=== PATIENT | male | born 1990 | race African-American/Black ===

== ENCOUNTER 2021-01-04 04:33 | Inpatient (IN) | payer OTHER ==
[~2021-01-04] VITALS: Ht 188 cm; Wt 114.8 kg
[2021-01-04 04:34] VITALS: BP 112/47
[2021-01-04] MEDS ORDERED: BACTRIM DS TAB1 EAC1 PO ×2 (05:51→07:53)
[2021-01-04 05:56] LABS: ABSOLUTE NEUTROPHILS 4.2 thou/uL (1.4-8.2); BASOPHILS 0.8 % (0.0-2.0); EOSINOPHILS 6.2 % (0.0-3.0); HEMATOCRIT 37.8 % (42.0-52.0); HEMOGLOBIN 11.7 gm/dL (14.0-18.0); LYMPHOCYTES 34.5 % (24.0-44.0); MCH 23.7 pg (26.0-34.0); MCV 76.4 fL (80.0-100.0); MONOCYTES 5.6 % (1.0-8.0); PLATELET COUNT 283 thou/uL (150-400); POLYS 52.9 % (36.0-66.0); RBC 4.95 mil/uL (4.50-6.00); RDW 14.9 % (10.5-14.5); WBC 7.9 thou/uL (4.0-11.0)
[2021-01-04 06:04] LABS: CALCIUM 8.8 mg/dL (8.5-10.1); POTASSIUM 3.7 mmol/L (3.5-5.1)
[2021-01-04 06:11] LABS: ALBUMIN 3.9 g/dL (3.4-5.0); TOTAL BILIRUBIN 0.2 mg/dL (0.2-1.0); TOTAL PROTEIN 8.2 g/dL (6.4-8.2)
[2021-01-04 06:32] LABS: URINE BILIRUBIN NEGATIVE (Negative); URINE BLOOD 1+ (Negative); URINE CLARITY CLOUDY; URINE COLOR YELLOW; URINE GLUCOSE-RANDOM* NEGATIVE (Negative); URINE KETONES NEGATIVE (Negative); URINE PROTEIN (DIPSTICK) 1+ (Negative); URINE SPECIFIC GRAVITY >= 1.030 (1.005-1.035); URINE UROBILINOGEN 0.2 E.U./dl (0.2-1.0)
[2021-01-04 06:37] LABS: URINE LEUKOCYTES-REFLEX 1+ (Negative); URINE NITRITE-REFLEX POSITIVE (Negative)
[2021-01-04 07:13] LABS: CASTS None Seen /LPF (None Seen); SQUAMOUS 0-3 Few /LPF (0-3); URINE RBC 3-10 Few /HPF (NONE SEEN); URINE WBC-REFLEX 6-15 Few /HPF (0-5)
[2021-01-04 07:18] LABS: AMORPHOUS URATES Moderate /LPF (None Seen)
[2021-01-04] MEDS ORDERED: HYOSCYAMINE0.125 MG PO (07:53)
[2021-01-04] MEDS ORDERED: SERTRALINE HCL100 MG PO (07:53)
[2021-01-04 11:13] VITALS: BP 109/61
[2021-01-04 11:15] LABS: FOLIC ACID 5.1 ng/mL (8.6-58.9)
[2021-01-04 11:37] VITALS: BP 114/51
[2021-01-04 12:05] VITALS: BP 118/88
[2021-01-04 15:26] VITALS: BP 106/63
--- NOTE | 2021-01-04 18:03 | NUR ---
PATIENT ADMIT TO UNIT AT 1200. ALERT, LETHARGIC. MULTIBLE WOUND PICTURE TAKING. NO SEZIURE NOTED. PATIENT HAVING EEG NOW. VSS. WILL KEEP MONITOR.
[2021-01-04 20:17] VITALS: BP 100/52
[2021-01-05 04:07] VITALS: BP 103/60
[2021-01-05 05:26] LABS: ABSOLUTE NEUTROPHILS 3.7 thou/uL (1.4-8.2); BASOPHILS 0.9 % (0.0-2.0); EOSINOPHILS 4.4 % (0.0-3.0); HEMATOCRIT 34.4 % (42.0-52.0); LYMPHOCYTES 35.6 % (24.0-44.0); MCH 24.3 pg (26.0-34.0); MONOCYTES 7.5 % (1.0-8.0); POLYS 51.6 % (36.0-66.0); RBC 4.52 mil/uL (4.50-6.00); RDW 14.7 % (10.5-14.5); WBC 7.2 thou/uL (4.0-11.0)
[2021-01-05 05:33] LABS: CALCIUM 8.4 mg/dL (8.5-10.1); CREATININE 0.6 mg/dL (0.7-1.3); POTASSIUM 3.5 mmol/L (3.5-5.1)
[2021-01-05 05:34] LABS: PLATELET COUNT 207 thou/uL (150-400)
[2021-01-05 07:34] VITALS: BP 111/65
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
[2021-01-05 11:24] VITALS: BP 112/63
--- NOTE | 2021-01-05 12:37 | NUR ---
WOUND CONSULT; ROUNDING WITH LUCIAN SANTOYO AND SATHISH HERZOG MSN. THE PATIENT HAS CHRONIC WOUNDS TO THE CALF BILATERALLY. NO ACUTE S/S OF INFECTION WAS VISUALIZE BUT I CANNOT RULE THIS OUT. RECOMMENDATION; LUCIAN SANTOYO ORDERED AG FOAM DRESSING, CHANGE M/W/F PRN. DISCUSSED WITH STAFF
[2021-01-05 15:54] VITALS: BP 98/65
--- NOTE | 2021-01-05 17:45 | NUR ---
FATHER AT BEDSIDE, CONCERNED WITH THE TYPE OF WOUND CARE THAT IS BEING DONE TO [facility]ONS [facility]. FATHER FEELS THAT HE NEEDS TO HAVE COLIGINATE AG ADDED TO WOUND CARE. YARELIS CISSE CALLED AND NOTIFIED OF ISSUE. HE SPOKE WITH FATHER ON THE PHONE. RECIEVED ORDERS TO ADD COLIGINATE AG TO BASE OF WOUND. TOLD FATHER TO BRING HOME SUPPLY IN TOMORROW WE MIGHT NOT HAVE THIS PRODUCT IN HOUSE, FATHER ACKNOWLEGED.
[2021-01-05 20:37] VITALS: BP 109/65
[2021-01-06 04:45] VITALS: BP 104/67
[2021-01-06 05:23] LABS: HEMATOCRIT 36.9 % (42.0-52.0); HEMOGLOBIN 11.8 gm/dL (14.0-18.0); MCH 24.2 pg (26.0-34.0); MCV 75.6 fL (80.0-100.0); RBC 4.88 mil/uL (4.50-6.00); RDW 14.7 % (10.5-14.5); WBC 6.1 thou/uL (4.0-11.0)
[2021-01-06 05:35] LABS: CREATININE 0.6 mg/dL (0.7-1.3); MAGNESIUM 2.2 mg/dL (1.8-2.4); POTASSIUM 3.5 mmol/L (3.5-5.1)
[2021-01-06 07:45] VITALS: BP 146/124
[2021-01-06 15:26] VITALS: BP 108/66
[2021-01-06 19:57] VITALS: BP 134/67
--- NOTE | 2021-01-07 01:40 | NUR ---
ASSESSMENT: PT REMAIN ALERT AND ORIENT TIMES THREE. PT WAS AWAKE AND WATCHING TELEVISION. DENIES PAIN, SOB AND N/V. VSS, AFEBRILE. SR PER MONITOR. WOUND CARE WAS PROVIDED BY PT'S OWN FATHER EARLIER DURING THE DAY SHIFT. DRESSING C/D/I. SUPRA-PUBIC CATH INTACT, PATENT WITH DK YELLOW URINE. NO BM THUS FAR THIS SHIFT. PT REFUSING TURNS MOST TIMES. EDUCATION R/T WOUNDS AND DECUBS GIVEN. SLOW PROGRESS TOWARDS DC GOALS. WILL CONTINUE TO MONITOR.
[2021-01-07 05:10] VITALS: BP 105/63
[2021-01-07 07:47] VITALS: BP 113/67
[2021-01-07] MEDS ORDERED: FOLIC ACID1 MG PO (11:29)
[2021-01-07] MEDS ORDERED: CEFUROXIME500 MG PO (11:29)
[2021-01-07] MEDS ORDERED: KEPPRA 500 MG500 M1 PO (11:29)
[2021-01-07] MEDS ORDERED: MIRALAX17 GM PO (11:29)
[2021-01-07 12:02] VITALS: BP 113/67
--- NOTE | 2021-01-07 15:38 | NUR ---
ASSUMED PATIENT CARE AT 0700. A/O X3. NO SEIZURE NOTED. VSS. DC TO HOME AT 1300.
--- NOTE | 2021-01-09 08:28 | HC ---
[facility] [place] [address] CONSULTATION Name: MAI CARMICHAEL Room #: [address] [place] [address] IN M.R.#: [id number] Admission: 01/04/21 Attend Phys: Edmond Garcia MD Discharge: 01/07/21 Date of : 89 Report #: [id number] THIS REPORT FOR: cc: Sammy Stafford MD, Washington S. MD Stephens, Thad A. MD ~ DOC #: [id number] Adam Jose MD DATE OF SERVICE: 01/05/2021 REQUESTING PHYSICIAN: Sammy Stafford MD CHIEF COMPLAINT: Bilateral calf ulcerations and coccygeal ulceration. HISTORY OF PRESENT ILLNESS: This is a 30-year-old black male who was brought in to the Emergency Department for seizures. The patient does have a history of seizures as well as a traumatic brain injury. The patient states that he has the ulcerations on the bilateral calves and coccygeal region, all of which supposed to be improving. The patient does have home health nurses that help assist in his care. The patient denies any other new ulcerations. PAST MEDICAL HISTORY: Significant for seizure disorder, traumatic brain injury, obesity. PAST SURGICAL HISTORY: Suprapubic catheter placement. CURRENT MEDICATIONS: Multiple. I reviewed the patient's medication list. DRUG ALLERGIES: None. SOCIAL HISTORY: The patient does not smoke or drink alcohol. FAMILY HISTORY: Not pertinent to current medical condition. REVIEW OF SYSTEMS: CONSTITUTIONAL: The patient denies fevers or chills. NEUROLOGIC: The patient had seizure activity prior to coming to the Emergency Department. Denies any headache at this time. EYES: No complaints. ENT: No complaints. CARDIOVASCULAR: The patient denies chest pain, palpitations or peripheral edema. RESPIRATORY: The patient denies shortness of breath, cough or wheezes. GASTROINTESTINAL: The patient denies nausea, vomiting or abdominal pain. GENITOURINARY: The patient has a suprapubic catheter. MUSCULOSKELETAL: No complaints. [facility] [address] [place] [address] CONSULTATION Name: MAI CARMICHAEL Room #: [address] [place] [address] [place] [facility].#: [id number] Admission: 01/04/21 Attend Phys: Edmond Garcia MD Discharge: 01/07/21 Date of : 89 Report #: [id number] SKIN: The patient has a chronic ulcer in the coccygeal region as well as chronic ulcers on the lateral calves and a chronic ulcer on the left heel. PHYSICAL EXAMINATION: VITAL SIGNS: Temperature 37.2, pulse 72, respirations 16, BP 112/63. GENERAL: He is alert and oriented to person and place, but not time. Chronically ill-appearing black male who is in no obvious distress. HEENT: Normocephalic, atraumatic. Mucous membranes are somewhat dry. Pupils are round. Sclerae white. NECK: Without JVD. LUNGS: Clear. HEART: Regular. ABDOMEN: Obese, soft, nontender. Evaluation of sacrococcygeal region reveals a resolving stage decubitus ulcer, which is fairly clean and granulating. Periwound is mildly macerated. There is no significant tunneling or undermining. Moderate amount of serosanguineous drainage noted without odor. EXTREMITIES: The patient has decreased movement of all extremities. The patient has on the bilateral calf regions are stage III decubitus ulcers, which are fairly clean and granulated with minimal serosanguineous drainage noted without odor. There is no tunneling or undermining. On the left heel, there is an unstageable decubitus ulcer, which is 100%, slough. Periwound is mildly macerated. There is no significant tunneling or undermining. Distal pulses are 1+. Right heel is intact. NEUROLOGIC: Cranial nerves II-XII are grossly intact. LABORATORY DATA: White count 7.2, hemoglobin 11.0, albumin 3.9. IMPRESSION: 1. Chronic resolving stage IV decubitus ulcer to the coccygeal region, overall improving. 2. Chronic stage III decubitus ulcers, bilateral calf regions, overall stable. 3. Unstageable decubitus ulcer, left heel. 4. History of seizure disorder. 5. Generalized debility. PLAN: At this time, we will start Aquacel AG packed into the coccygeal ulcer covered with a foam dressing changes daily. We will place the patient on low air loss surface, having turned every 2 hours. We will put the patient in heel protection boots to be worn at all times. We will use Aquacel and foam border to the bilateral calf ulcers, change daily. We will make sure we maximize the patient's oral protein supplementation for continued healing. We will utilize physical and occupational therapy for strengthening. We will continue all other current medications. Appreciate ability to consult.. Adam Jose MD [address] [address] CONSULTATION Name: MAI CARMICHAEL Room #: [facility] IN M.R.#: [id number] Admission: 01/04/21 Attend Phys: Edmond Garcia MD Discharge: 01/07/21 Date of : 89 Report #: [id number] TAS/DAVID <ELECTRONICALLY SIGNED> By: Adam Jose MD 01/09/21 0828 [id number] Adam Jose MD /nt
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
--- NOTE | 2021-01-11 14:17 | EEG ---
[facility] [place] [address] ELECTROENCEPHALOGRAM Name: MAI CARMICHAEL Room #: [address] [place] [address] [place] M.R.#: [id number] Admission: 01/04/21 Attend Phys: Edmond Garcia MD Discharge: 01/07/21 Date of : 89 Report #: [id number] THIS REPORT FOR: //name// DOC #: [id number] Speedy Mederos MD DATE OF SERVICE: 01/04/2021 This patient is being evaluated for seizure. EEG was done by placing the electrode by standard 10-20 system of electrode placement. Both referential and sequential montages were used for recording. Background activity in this patient's EEG is about 10 Hz and 30 microvolt. The patient went to sleep that is associated with bilateral slowing and vertex sharp waves. Photic stimulation is unremarkable. No active epileptiform activity was noticed. IMPRESSION: This patient's EEG does not demonstrate any active epileptiform activity. Speedy Mederos MD PK/DAVID <ELECTRONICALLY SIGNED> By: Speedy Mederos MD 01/11/21 1417 [id number] Speedy Mederos MD /nt
== END 2021-01-07 13:22 | disposition home or self-care (01) | DRG 871 ==
LOC: ER 04:33 → EROBS 11:16 → 3W 11:16
PROVIDERS: Emergency Medicine; Internal Medicine; Nurse Practitioner; ADMIT Hospitalist; ATTEND Hospitalist
DX: A41.9 Sepsis, unspecified organism (principal); L89.154 Pressure ulcer of sacral region, stage 4; L89.893 Pressure ulcer of other site, stage 3; G92 Toxic encephalopathy; N39.0 Urinary tract infection, site not specified; G82.20 Paraplegia, unspecified; N31.9 Neuromuscular dysfunction of bladder, unspecified; L89.620 Pressure ulcer of left heel, unstageable; G40.401 Other generalized epilepsy and epileptic syndromes, not intractable, with status epilepticus; Z79.899 Other long term (current) drug therapy; Z87.820 Personal history of traumatic brain injury
CPT/HCPCS: 10879

== ENCOUNTER 2021-06-13 09:03 | Emergency (ER) | payer OTHER ==
[~2021-06-13] VITALS: Ht 185.4 cm; Wt 110.8 kg
--- NOTE | ~2021-06-13 | EMS ---
[place] [address] EMS Patient Care Report Name: MAI CARMICHAEL Room #: PRE MVic#: [id number] Admission: Attend Phys: Discharge: Date of : 89 Report #: [id number] THIS REPORT FOR: //name// Report Transmitted: 06/13/2021 08:24 EMS Care Summary [place], [place]/[facility] Incident [id number] @ 06/13/2021 08:26 [address] [place] [address] Patient MAI CARMICHAEL Male, 31 Years 1990 Patient Address [address] [place] [address] Patient History Seizures,Paraplegia,Past Traumatic Brain Injury, Patient Allergies No known allergies, Patient Medications None Reported, Chief Complaint SEIZURE ACTIVITY Disposition Transported No Lights/Gore Dispatch Reason Convulsions/Seizure Transported To [facility] Narrative UPON ARRIVAL PT IN BED NOT ALERT. PT'S FATHER STATES HE'S BEEN HAVING SEIZURE ACTIVITY THE PAST 30 MINUTES. THIS WOULD BE PT'S 3RD SEIZURE IN HIS LIFE. PT PARAPLEGIC AND HAS HAD A PAST TBI. PT CARRIED TO COT VIA [place]. PT TRANSPORTED TO [facility]. PT HAS NO SEIZURE ACTIVITY DURING CARE BUT REMAINS [address] [address] EMS Patient Care Report Name: MAI CARMICHAEL Room #: PRE M.R.#: [id number] Admission: Attend Phys: Discharge: Date of : 89 Report #: [id number] POSTICTAL THROUGHOUT. Initial Vitals @08:50P: 102,CO: 6,SpO2: 94, @08:51P: 109,R: 16,BP: 98/61,GCS: 10,SpO2: 97,Revised Trauma: 11, @08:40P: 103,R: 16,BP: 95/57,Pain: 0/10,GCS: 10,Glucose: 131,SpO2: 93,Revised Trauma: 11, Assessments @08:32MENTAL:Other,Confused,SKIN:HEENT:Head/Face: No Abnormalities,Neck/Airway: No Abnormalities,LUNG SOUNDS:General: No Abnormalities,ABDOMEN:General: No Abnormalities,PELVIS//GI:EXTREMITIES:PULSE:Radial: 2+ Normal,NEURO:Seizures, Impression Seizures Procedures @08:32 ALS Assessment Response: UnchangedSucceeded @08:40 IV Therapy - Saline Lock 10cc (20 ga) Site: Hand-Left Response: UnchangedSucceeded @08:45 Oxygen FlowRate: 2 Device: Nasal Cannula (NC) Response: ImprovedSucceeded @08:42 3-Lead ECG Response: UnchangedSucceeded Timeline 08:24,Call Received 08:24,Dispatch Notified 08:26,Dispatched 08:26,En Route 08:30,On Scene 08:31,At Patient 08:32,ALS Assessment,Response: UnchangedSucceeded, 08:40,BP: 95/57 M,PULSE: 103,RR: 16 R,SPO2: 93 Ox,ETCO2: ,B,PAIN: 0,GCS: 10, 08:40,IV Therapy - Saline Lock 10cc 20 ga Site: Hand-Left,Response: UnchangedSucceeded, 08:42,3-Lead ECG,Response: UnchangedSucceeded, 08:43,Depart Scene 08:45,Oxygen FlowRate: 2 Device: Nasal Cannula (NC) Response: ImprovedSucceeded, 08:50,BP: / M,PULSE: 102,RR: R,SPO2: 94 Ox,ETCO2: ,BG: ,PAIN: ,GCS: , 08:51,BP: 98/61 M,PULSE: 109,RR: 16 R,SPO2: 97 Ox,ETCO2: ,BG: ,PAIN: ,GCS: 10, 08:58,At Destination 09:20,Call Closed Disclaimer [facility] [address] [place] [address] EMS Patient Care Report Name: MAI CARMICHAEL Room #: PRE ER M.R.#: [id number] Admission: Attend Phys: Discharge: Date of : 89 Report #: [id number] v1.1 Copyright 2020 [employer] This EMS Care Summary contains data elements from the applicable legal record (which may be displayed differently). It is designed to provide pertinent information for the following purposes: continuity of care, clinical quality, and state data reporting. The complete legal record is available to ED staff and administrators of the receiving hospital in [employer]'s Patient Tracker. All data is provided "as is."
[~2021-06-13 09:03] MED LIST: BACTRIM DS TAB1 EAC1 PO; CEFUROXIME500 MG PO; FOLIC ACID1 MG PO; HYOSCYAMINE0.125 MG PO; KEPPRA 500 MG500 M1 PO; MIRALAX17 GM PO; SERTRALINE HCL100 MG PO
[2021-06-13 09:18] LABS: ABSOLUTE NEUTROPHILS 11.7 thou/uL (1.4-8.2); BASOPHILS 0.1 % (0.0-2.0); EOSINOPHILS 0.5 % (0.0-3.0); HEMATOCRIT 37.1 % (42.0-52.0); HEMOGLOBIN 11.6 gm/dL (14.0-18.0); LYMPHOCYTES 7.5 % (24.0-44.0); MCH 23.9 pg (26.0-34.0); MCHC 31.3 g/dL (28.0-37.0); MCV 76.3 fL (80.0-100.0); MONOCYTES 7.3 % (1.0-8.0); PLATELET COUNT 245 thou/uL (150-400); POLYS 84.6 % (36.0-66.0); RBC 4.86 mil/uL (4.50-6.00); RDW 14.3 % (10.5-14.5); WBC 13.8 thou/uL (4.0-11.0)
[2021-06-13 09:30] LABS: CALCIUM 8.7 mg/dL (8.5-10.1); CREATININE 0.8 mg/dL (0.7-1.3); POTASSIUM 3.6 mmol/L (3.5-5.1)
[2021-06-13 09:37] LABS: ALBUMIN 3.8 g/dL (3.4-5.0); TOTAL BILIRUBIN 0.5 mg/dL (0.2-1.0); TOTAL PROTEIN 8.1 g/dL (6.4-8.2)
[2021-06-13 09:39] LABS: URINE BILIRUBIN NEGATIVE (Negative); URINE BLOOD 3+ (Negative); URINE COLOR YELLOW; URINE GLUCOSE-RANDOM* NEGATIVE (Negative); URINE KETONES NEGATIVE (Negative); URINE PROTEIN (DIPSTICK) 2+ (Negative)
[2021-06-13 09:41] LABS: URINE CLARITY CLOUDY; URINE LEUKOCYTES-REFLEX 3+ (Negative); URINE NITRITE-REFLEX POSITIVE (Negative)
[2021-06-13 09:54] LABS: CASTS None Seen /LPF (None Seen); SQUAMOUS 0-3 Few /LPF (0-3); URINE WBC-REFLEX 6-15 Few /HPF (0-5)
[2021-06-13 09:55] LABS: URINE RBC 1-2 Rare /HPF (NONE SEEN)
[2021-06-13 09:56] LABS: TRIPLE PHOSPHATE CRYSTALS >10 Many /LPF (None Seen)
[2021-06-13 10:00] LABS: BACTERIA-REFLEX >30 Many /HPF (None Seen)
[2021-06-13] MEDS ORDERED: LEVOFLOXACIN750 MG PO (13:44)
[2021-06-13 14:06] VITALS: BP 117/54
--- NOTE | 2021-06-13 17:15 | EKG ---
[address] [address] ELECTROCARDIOGRAM REPORT Name: MAI CARMICHAEL [id number] Admission: 06/13/21 Attend Phys: Discharge: 06/13/21 Date of : 89 Report #: [id number] [facility] ED Test Date: 2021-06-13 Test Time: 09:12:26 Pat Name: MAI CARMICHAEL Department: Room: Gender: M Welder 2Nd Shift: JOANIE : 1990 Requested By: Fred Espinal Order Number: [id number] MD: Manuel Fuentes Measurements Intervals [place] Rate: 99 P: 53 AK: 174 QRS: 23 QRSD: 86 T: 34 QT: 346 QTc: 444 Interpretive Statements Sinus rhythm Probable left atrial enlargement No previous ECG available for comparison Electronically Signed On 06-13-2021 17:14:56 [facility]IA[facility] by Manuel Fuentes [email or web address] <ELECTRONICALLY SIGNED> By: Manuel Fuentes MD, [facility] 06/13/21 1714 1 Manuel Fuentes MD, FACC /EPI
== END 2021-06-13 14:06 | disposition home or self-care (01) ==
LOC: ER 09:03
PROVIDERS: Student in an Organized Health Care Education/Training Program
DX: R56.9 Unspecified convulsions (principal); Z20.822 Contact with and (suspected) exposure to COVID-19; Z79.891 Long term (current) use of opiate analgesic; Z79.899 Other long term (current) drug therapy